=== PATIENT | female | born 1990 | race Two or more races ===

== ENCOUNTER → 2022-08-31 | Outpatient (REF) | payer BC | LOC: M SFHCWAGY 09:49 | PROVIDERS: ATTEND Specialist | DX: Z34.03 Encounter for supervision of normal first pregnancy, third trimester (principal) ==

== ENCOUNTER 2022-09-30 01:54 | Inpatient (IN) | payer BC ==
[~2022-09-30] VITALS: Ht 152.4 cm; Wt 90.6 kg
[2022-09-30] VITALS (49 sets, daily range): BP systolic 104–169; BP diastolic 55–98; O2SAT 94–100
[2022-09-30] MEDS ORDERED: TUMS500C PO (02:25)
[2022-09-30] MEDS ORDERED: HOME MED LIST COMPLETE! XX SCH (02:25)
[2022-09-30] MEDS ORDERED: PRENTAB9 PO (02:25)
[2022-09-30 03:53] LABS: HEMATOCRIT 36.7 % (36.0-47.0); HEMOGLOBIN 12.1 g/dl (12.0-15.5); MEAN CORPUSCULAR HEMOGLOBIN 27.8 pg (27.0-33.0); MEAN CORPUSCULAR VOLUME 84.2 fl (80.0-96.0); PLATELET COUNT, AUTOMATED 281 10^3/uL (150-450); RED BLOOD COUNT 4.36 10^6/uL (4.00-5.40)
[2022-09-30] MEDS ORDERED: miSOPROStol 50MCG 1/2 TABLET PO ONE (04:00)
[2022-09-30 04:30] LABS: HEPATITIS B SURFACE ANTIGEN NEGATIVE (NEGATIVE)
[2022-09-30 06:15] LABS: URIC ACID 2.8 MG/DL (3.1-7.8)
[2022-09-30 06:16] LABS: LDH LACTATE DEHYDROGENASE 160 U/L (120-246)
[2022-09-30 06:17] LABS: ALT/SGPT 11 U/L (7.0-40); AST/SGOT 10 U/L (<34); BILIRUBIN,TOTAL 0.4 MG/DL (0.3-1.2); CREATININE FOR GFR 0.54 MG/DL (0.55-1.30); GLOMERULAR FILTRATION RATE > 60.0 (>60)
[2022-09-30 08:35] LABS: TOTAL PROTEIN,RANDOM URINE 11.8 MG/DL (0.0-14.0)
[2022-09-30 08:40] LABS: CREATININE,RANDOM URINE 63.7 MG/DL
[2022-09-30] MEDS ORDERED: FENTANYL 2MCG/ML ROPIVACAINE 0.2% IN 0.9% NACL 100ML IVBAG As Ordered ONE (10:21)
[2022-09-30] MEDS ORDERED: ONDANSETRON 4MG 2ML VIAL IV PRN ×2 (10:25→17:00)
[2022-09-30] MEDS ORDERED: FENTANYL/ROPIVACAINE/NACL BAG 100 ML EPIDURAL SCH (10:25)
[2022-09-30] MEDS ORDERED: LR 500 ML IV PRN (10:25)
[2022-09-30] MEDS ORDERED: EPIDURAL/PCA KEYS XX PRN (10:25)
[2022-09-30] MEDS ORDERED: ePHEDrine SULFATE 25 MG/5 ML(5MG/ML) SYRINGE IVP PRN (10:25)
[2022-09-30] MEDS ORDERED: NALOXONE INJ 0.4MG/1ML VIAL IV PRN (10:25)
[2022-09-30] MEDS ORDERED: diphenhydrAMINE 50MG/ML VIAL IV PRN (10:25)
[2022-09-30] MEDS: LR 1,000 ML IV SCH ×2 (10:30→10:31)
[2022-09-30] MEDS ORDERED: LACTATED RINGER'S 1000 ML IV STA (11:33)
[2022-09-30] MEDS ORDERED: OXYTOCIN DRIP 30 UNITS in IV 1 EA IV PRN (11:35)
[2022-09-30] MEDS ORDERED: LR 1,000 ML IV SCH ×2 (11:35→17:00)
[2022-09-30] MEDS ORDERED: TRANEXAMIC ACID INJection 1,000 MG in NS 100 ML IV PRN (11:35)
[2022-09-30] MEDS ORDERED: CARBOPROST TROMETHAMINE 250 MCG/ML AMP IM PRN (11:35)
[2022-09-30] MEDS ORDERED: METHYLERGONOVINE MALEATE 0.2MG/ML 1ML VIAL IM PRN (11:35)
[2022-09-30] MEDS ORDERED: LIDOCAINE 1% MDV 20ML VIAL INFIL PRN (11:35)
[2022-09-30] MEDS ORDERED: OXYTOCIN DRIP 30 UNITS in IV 1 EA IV SCH ×2 (15:10→17:00)
[2022-09-30] MEDS ORDERED: ANUSOL HC CREAM 30GM TOP PRN (17:00)
[2022-09-30] MEDS ORDERED: ACETAMINOPHEN TAB 650MG DOSE (2X325MG) PO PRN (17:00)
[2022-09-30] MEDS ORDERED: RHOGAM 300MCG (1500IU) INJ IM SCH (17:00)
[2022-09-30] MEDS ORDERED: DOCUSATE SODIUM 100MG CAPSULE PO PRN (17:00)
[2022-09-30] MEDS ORDERED: IBUPROFEN 800 MG TAB PO PRN (17:00)
[2022-09-30] MEDS ORDERED: DIBUCAINE 1% OINTMENT 30GM TOP PRN (17:00)
[2022-09-30] MEDS: PRENATAL VITAMINS CHEWABLE TABLET PO SCH (18:47)
[2022-09-30] MEDS: IBUPROFEN 600MG TAB PO PRN (18:48)
[2022-10-01] MEDS: ACETAMINOPHEN 500 MG TAB PO PRN ×2 (02:29→08:36)
[2022-10-01 06:00] VITALS: BP 109/57; O2SAT 97
[2022-10-01] MEDS: PRENATAL VITAMINS CHEWABLE TABLET PO SCH (08:37)
[2022-10-01] MEDS: IBUPROFEN 600MG TAB PO PRN (15:27)
[2022-10-01 18:00] VITALS: BP 112/59; O2SAT 96
[2022-10-02] MEDS: ACETAMINOPHEN 500 MG TAB PO PRN ×2 (02:44→12:37)
[2022-10-02 06:05] VITALS: BP 115/56; O2SAT 97
[2022-10-02] MEDS: PRENATAL VITAMINS CHEWABLE TABLET PO SCH (08:47)
[2022-10-02] MEDS ORDERED: MEASLES,MUMPS,RUBELLA VACCINE INJ (MMR-II) SC.IMMUN ONE (09:00)
[2022-10-02] MEDS ORDERED: ACET-683 PO (14:56)
[2022-10-02] MEDS ORDERED: IBUP80TA PO (14:56)
== END 2022-10-02 16:05 | disposition home or self-care (01) | DRG 560 ==
LOC: M LDO 01:54 → M LDI 02:05 → M OBS 20:03
PROVIDERS: ADMIT Obstetrics & Gynecology; ATTEND Obstetrics & Gynecology
PROC: 10E0XZZ Delivery of Products of Conception, External Approach (ICD-10-PCS; principal; 2022-09-30)
PROC: 0HQ9XZZ Repair Perineum Skin, External Approach (ICD-10-PCS; 2022-09-30)
DX: O48.0 Post-term pregnancy (principal); Z37.0 Single live birth; Z3A.40 40 weeks gestation of pregnancy; O70.0 First degree perineal laceration during delivery

== ENCOUNTER → 2023-05-18 | Outpatient (REF) | payer BC ==
[~2023-05-18] MED LIST: ACET-683 PO; IBUP80TA PO; PRENTAB9 PO; TUMS500C PO
== END ==
LOC: M LAB REF 17:18
PROVIDERS: ATTEND Physician Assistant Medical
DX: R07.0 Pain in throat (principal); B95.4 Other streptococcus as the cause of diseases classified elsewhere